=== PATIENT | female | born 1995 | race Caucasian/White ===

== ENCOUNTER 2022-09-24 07:39 | Day surgery (SDC) | payer OTHER ==
[~2022-09-24] VITALS: Ht 149.9 cm; Wt 92.5 kg
[2022-09-24] MEDS ORDERED: diphenhydrAMINE 50 MG/ML VIAL ONE (08:16)
[2022-09-24] MEDS ORDERED: MIDAZOLAM 5 MG/5 ML VIAL ONE (08:16)
[2022-09-24] MEDS ORDERED: fentaNYL citrate 0.05 MG/ML VIAL ONE (08:16)
[2022-09-24] MEDS ORDERED: LIDOCAINE 2% 100 MG/5 ML UJET TP ONE (08:16)
[2022-09-24] MEDS ORDERED: fentaNYL citrate 0.05 MG/ML VIAL IVP ONE (08:45)
[2022-09-24] MEDS ORDERED: MIDAZOLAM 2 MG/2 ML VIAL IVP ONE (08:45)
== END 2022-09-24 09:25 | disposition home or self-care (01) ==
LOC: MOR 07:39 → MMU 07:39 → MOR 09:25
PROVIDERS: ATTEND Internal Medicine Gastroenterology
DX: K62.5 Hemorrhage of anus and rectum (principal); E78.00 Pure hypercholesterolemia, unspecified; E66.9 Obesity, unspecified; K21.9 Gastro-esophageal reflux disease without esophagitis; Z79.899 Other long term (current) drug therapy; Z68.41 Body mass index [BMI] 40.0-44.9, adult
CPT/HCPCS: 45380; 88305; J2250; J3010; J1200